=== PATIENT | female | born 1950 | race Caucasian/White ===

== ENCOUNTER 2017-07-15 17:31 | Observation (INO) | payer BC ==
[2017-07-15] MEDS ORDERED: Sodium Chloride 0.9% 2.5 ML Syringe FLUSH PRN (17:59)
[2017-07-15] MEDS ORDERED: Ketorolac 30 MG/ML SDV IVPUSH ONE (17:59)
[2017-07-15] MEDS ORDERED: Sodium Chloride 0.9% 10 ML Syringe FLUSH PRN (17:59)
--- NOTE | 2017-07-15 18:10 | EDM.PDOC ---
ED HPI GENERAL MEDICAL PROBLEM - General Chief Complaint: Gastrointestinal Problem Stated Complaint: STOMACH/BACK PAIN Time Seen by Provider: 07/15/17 17:55 Source of Information: Reports: Patient History Limitations: Reports: No Limitations - History of Present Illness INITIAL COMMENTS - FREE TEXT/NARRATIVE: HISTORY AND PHYSICAL: History of present illness: [Patient comes to the emergency room complaining of abdominal pain that radiates around to her mid back. Pain started at 2:30 this afternoon and has continued. She describes the pain as an aching that starts in the middle of her abdomen and moves to the back. She's never had pain like this before. Rates it as 5 out of 10. States that she was feeling well earlier today and has not been sick recently. No fever or chills. No earache, sore throat, or runny nose. No neck pain headaches dizziness or lightheadedness. She's had no pain in her chest , shortness of breath or difficulty breathing. She feels nauseated with her pain and feels that she could vomit at any time, which resolved about one hour ago. Stools have been normal. She usually has one bowel movement daily but today she's had 3. She denies any of them being loose or watery. No blood in her stools. Denies burning with urination and urinary frequency. No blood in her urine. No low back pain, muscle aches or joint pain. She's not had anything to eat or drink since the pain began. She ate normal foods today, including fried eggs and ham for lunch. States that she is healthy and follows regularly with Dr. Brewer. Surgical history includes 2 sinus surgeries and a R knee repair.] Review of systems: As per history of present illness and below otherwise all systems reviewed and negative. Past medical history: As per history of present illness and as reviewed below otherwise noncontributory. Surgical history: As per history of present illness and as reviewed below otherwise noncontributory. Social history: No reported history of drug or alcohol abuse. Family history: As per history of present illness and as reviewed below otherwise noncontributory. Physical exam: HEENT: Atraumatic, normocephalic. Oral mucous membranes are pink and moist no tonsillar swelling erythema or exudate. Neck is supple, no lymphadenopathy. Lungs: Clear to auscultation, breath sounds equal bilaterally, chest nontender. Heart: S1S2, regular rate and rhythm. No murmur gallop click or rub. Abdomen: Bowel sounds are normoactive throughout. Abdomen is soft and nondistended. She is tender with palpation over her epigastrium and right upper quadrant. No masses guarding or rebound. No CVA tenderness. Pelvis: Stable nontender. Genitourinary: Deferred. Rectal: Deferred. Extremities: Atraumatic, negative for cords or calf pain. No cyanosis or edema to feet or lower legs. Neurovascular unremarkable. Neuro: Awake, alert, oriented. Motor and sensory unremarkable throughout. Exam nonfocal. Diagnostics: [CBC, CMP, UA, amylase, lipase] Therapeutics: [Toradol 30 mg IV] Impression: [abdominal pain cholelithiasis] Plan: [CT shows cholelithiasis, is otherwise unremarkable. AST 95 bilirubin 0.7. Lipase 516, amylase 82, urinalysis is unremarkable. CBC is also unremarkable. Case is discussed with Dr. Susy Polo who recommends inpatient for medical management with IV hydration, nothing by mouth, repeat labs and ultrasound in the morning and consult in a.m. Dr. Fernando Alan agrees to accept patient in observation. This is discussed with the patient and her who are in agreement with today's plan.] Definitive disposition and diagnosis as appropriate pending reevaluation and review of above. Abdomen Pain Score (Numeric/FACES): 5 - Related Data Allergies Allergy/AdvReac Type Severity Reaction Status Date / Time No Known Allergies Allergy Verified 07/15/17 17:43 Home Meds: Home Meds Loratadine 1 tab PO DAILY 08/28/14 [History] Past Medical History HEENT History: Reports: Sinusitis - Infectious Disease History Infectious Disease History: Reports: Chicken Pox - Past Surgical History HEENT Surgical History: Reports: Other (See Below) Other HEENT Surgeries/Procedures: sinus surgery Musculoskeletal Surgical History: Reports: Other (See Below) Other Musculoskeletal Surgeries/Procedures:: pt states she had surgery on her right knee for torn cartilage Social & Family History - Family History Family Medical History: Noncontributory - Tobacco Use Smoking Status *Q: Never Smoker - Caffeine Use Caffeine Use: Reports: Coffee - Alcohol Use Days Per Week of Alcohol Use: 0 Number of Drinks Per Day: 0 Total Drinks Per Week: 0 - Recreational Drug Use Recreational Drug Use: No Drug Use in Last 12 Months: No ED ROS GENERAL - Review of Systems Review Of Systems: ROS reveals no pertinent complaints other than HPI. ED EXAM, GI/ABD - Physical Exam Exam: See Below Course - Vital Signs Last Recorded V/S: Last Vital Signs Temp 98 F 07/15/17 20:44 Pulse 80 07/15/17 20:44 Resp 18 07/15/17 20:44 BP 156/80 H 07/15/17 20:44 Pulse Ox 98 07/15/17 20:44 - Orders/Labs/Meds Orders: Active Orders 24 hr Category Date Time Status Notify Provider Consults [RC] ASDIRECTED Care 07/15/17 20:22 Active Consult to Physician [CONS] Stat Cons 07/15/17 20:21 Active Abdomen Pelvis w Cont [CT] Stat Exams 07/15/17 19:11 Taken Sodium Chloride 0.9% [Saline Flush] Med 07/15/17 17:59 Active 10 ml FLUSH ASDIRECTED PRN Sodium Chloride 0.9% [Saline Flush] Med 07/15/17 17:59 Active 2.5 ml FLUSH ASDIRECTED PRN Saline Lock Insert [OM.PC] Stat Oth 07/15/17 17:59 Ordered Medication Orders Sodium Chloride (Saline Flush) 10 ml FLUSH ASDIRECTED PRN PRN Reason: Keep Vein Open Sodium Chloride (Saline Flush) 2.5 ml FLUSH ASDIRECTED PRN PRN Reason: Keep Vein Open Labs: Laboratory Tests 07/15/17 07/15/17 07/15/17 Range/Units 18:12 18:12 18:14 WBC 7.57 (4.0-11.0) K/uL RBC 5.08 (4.30-5.90) M/uL Hgb 16.6 H (12.0-16.0) g/dL Hct 46.5 H (36.0-46.0) % MCV 91.5 (80.0-98.0) fL MCH 32.7 H (27.0-32.0) pg MCHC 35.7 (31.0-37.0) g/dL RDW Std Deviation 45.3 (28.0-62.0) fl RDW Coeff of [place] 13 (11.0-15.0) % Plt Count 170 (150-400) K/uL MPV 9.30 (7.40-12.00) fL Neut % (Auto) 80.7 H (48.0-80.0) % Lymph % (Auto) 12.5 L (16.0-40.0) % [place] % (Auto) 5.4 (0.0-15.0) % Eos % (Auto) 1.1 (0.0-7.0) % Baso % (Auto) 0.3 (0.0-1.5) % Neut # (Auto) 6.1 H (1.4-5.7) K/uL Lymph # (Auto) 1.0 (0.6-2.4) K/uL [place] # (Auto) 0.4 (0.0-0.8) K/uL Eos # (Auto) 0.1 (0.0-0.7) K/uL Baso # (Auto) 0.0 (0.0-0.1) K/uL Nucleated RBC % 0.0 /100WBC Nucleated RBCs # 0 K/uL Sodium 144 (136-145) mmol/L Potassium 3.7 (3.5-5.1) mmol/L Chloride 107 (98-107) mmol/L Carbon Dioxide 26.0 (21.0-32.0) mmol/L BUN 19 H (7.0-18.0) mg/dL Creatinine 1.1 H (0.6-1.0) mg/dL Est Cr Clr Drug Dosing 44.62 mL/min Estimated GFR (MDRD) 50.0 ml/min Glucose 121 H (74-106) mg/dL Calcium 9.6 (8.5-10.1) mg/dL Total Bilirubin 0.7 (0.2-1.0) mg/dL AST 95 H (15-37) IU/L ALT 63 (14-63) IU/L Alkaline Phosphatase 88 (46-116) U/L Total Protein 7.8 (6.4-8.2) g/dL Albumin 4.2 (3.4-5.0) g/dL Globulin 3.6 H (2.0-3.5) g/dL Albumin/Globulin Ratio 1.2 L (1.3-2.8) Amylase 82 (25-115) U/L Lipase 516 H (73-393) U/L Urine Color YELLOW Urine Appearance CLEAR Urine pH 5.5 (5.0-8.0) Ur Specific [place] 1.025 (1.001-1.035) Urine Protein NEGATIVE (NEGATIVE) mg/dL Urine Glucose (UA) NEGATIVE (NEGATIVE) mg/dL Urine Ketones NEGATIVE (NEGATIVE) mg/dL Urine Occult Blood TRACE-INTACT (NEGATIVE) Urine Nitrite NEGATIVE (NEGATIVE) Urine Bilirubin NEGATIVE (NEGATIVE) Urine Urobilinogen 0.2 (<2.0) EU/dL Ur Leukocyte Esterase NEGATIVE (NEGATIVE) Urine RBC NONE SEEN (0-2/HPF) Urine WBC 0-1 (0-5/HPF) Ur Epithelial Cells OCCASIONAL (NONE-FEW) Urine Bacteria RARE (NEGATIVE) Urine Mucus LIGHT (NONE-MOD) Meds: Medications Generic Name Dose Route Start Last Admin Trade Name Asaf PRN Reason Stop Dose Admin Sodium Chloride 10 ml 07/15/17 17:59 Saline Flush FLUSH ASDIRECTED PRN Keep Vein Open Sodium Chloride 2.5 ml 07/15/17 17:59 Saline Flush FLUSH ASDIRECTED PRN Keep Vein Open Discontinued Medications Generic Name Dose Route Start Last Admin Trade Name Asaf PRN Reason Stop Dose Admin Iopamidol 200 ml 07/15/17 19:33 07/15/17 19:34 Isovue Multipack-370 (76%) IVPUSH 07/15/17 19:34 80 ml ONETIME STA Administration Ketorolac Tromethamine 30 mg 07/15/17 17:59 07/15/17 18:12 Toradol IVPUSH 07/15/17 18:00 30 mg ONETIME ONE Administration Departure - Departure Time of Disposition: 20:22 Disposition: Refer to Observation Condition: Good Clinical Impression: Abdominal pain - Discharge Information - My Orders Last 24 Hours: My Active Orders 07/15/17 17:59 Sodium Chloride 0.9% [Saline Flush] 10 ml FLUSH ASDIRECTED PRN Sodium Chloride 0.9% [Saline Flush] 2.5 ml FLUSH ASDIRECTED PRN Saline Lock Insert [OM.PC] Stat 07/15/17 19:11 Abdomen Pelvis w Cont [CT] Stat 07/15/17 20:21 Consult to Physician [CONS] Stat 07/15/17 20:22 Notify Provider Consults [RC] ASDIRECTED - Assessment/Plan Last 24 Hours: My Active Orders 07/15/17 17:59 Sodium Chloride 0.9% [Saline Flush] 10 ml FLUSH ASDIRECTED PRN Sodium Chloride 0.9% [Saline Flush] 2.5 ml FLUSH ASDIRECTED PRN Saline Lock Insert [OM.PC] Stat 07/15/17 19:11 Abdomen Pelvis w Cont [CT] Stat 07/15/17 20:21 Consult to Physician [CONS] Stat 07/15/17 20:22 Notify Provider Consults [RC] ASDIRECTED
[2017-07-15] MEDS ORDERED: Iopamidol 755 MG/ML 200 ML Multipack Bottle IVPUSH STA (19:33)
[2017-07-15] MEDS ORDERED: Sodium Chloride 0.9% 1,000 ML IV ONE (22:29)
--- NOTE | 2017-07-15 23:55 | PCM.HP ---
H&P History of Present Illness - General Admit Problem/Dx: Admission Diagnosis/Problem Admission Diagnosis/Problem Abdominal pain - History of Present Illness Initial Comments - Free Text/Narative: 66 yo female who presents with one day history of abdominal pain. Pain started after eating today. She reported pain in the center of her abdomen that radiated to the back. She denies any fevers, diarrhea, nausea or vomiting. She received toradol in the ED and it resolved her abdominal pain. CT scan reported hepatic steatosis and cholelithiasis. Her labs showed a lipase of 516. Dr. Polo was consulted by ED provider who recommended admission to medical service. Abdomen Pain Score (Numeric/FACES): 5 - Related Data Allergies/Adverse Reactions: Allergies Allergy/AdvReac Type Severity Reaction Status Date / Time No Known Allergies Allergy Verified 07/15/17 17:43 Home Medications: Home Meds Loratadine 1 tab PO DAILY 08/28/14 [History] Past Medical History HEENT History: Reports: Sinusitis - Infectious Disease History Infectious Disease History: Reports: Chicken Pox - Past Surgical History HEENT Surgical History: Reports: Other (See Below) Other HEENT Surgeries/Procedures: sinus surgery Musculoskeletal Surgical History: Reports: Other (See Below) Other Musculoskeletal Surgeries/Procedures:: pt states she had surgery on her right knee for torn cartilage Social & Family History - Family History Family Medical History: Noncontributory - Tobacco Use Smoking Status *Q: Never Smoker - Caffeine Use Caffeine Use: Reports: Coffee - Alcohol Use Days Per Week of Alcohol Use: 0 Number of Drinks Per Day: 0 Total Drinks Per Week: 0 - Recreational Drug Use Recreational Drug Use: No Drug Use in Last 12 Months: No H&P Review of Systems - Review of Systems: Review Of Systems: ROS reveals no pertinent complaints other than HPI. Exam - Exam Exam: See Below - Vital Signs Vital Signs: Last Vital Signs Temp 36.6 C 07/15/17 21:20 Pulse 69 07/15/17 21:20 Resp 20 07/15/17 21:20 BP 151/73 H 07/15/17 21:20 Pulse Ox 95 07/15/17 21:20 Weight: 80.4 kg - Exam General: Alert, Oriented HEENT: Mucosa Moist & [place] Lungs: Clear to Auscultation, Normal Respiratory Effort Cardiovascular: Regular Rate, Regular Rhythm GI/Abdominal Exam: Normal Bowel Sounds, Soft, Non-Tender, No Distention Extremities: Non-Tender, No Pedal Edema Skin: Warm, Dry, Intact - Patient Data Result Diagrams: 07/16/17 04:50 07/16/17 16:22 *Q Meaningful Use (ADM) - VTE *Q VTE Criteria *Q: - Stroke *Q Stroke Criteria *Q: - AMI *Q AMI Criteria *Q: Problem List Initiated/Reviewed/Updated: Yes Orders Last 24hrs: Active Orders 24 hr Category Date Time Status NPO [Nothing Per Oral Diet] [DIET] Diet 07/16/17 Breakfast Active AMYLASE [CHEM] Routine Lab 07/16/17 05:00 Ordered CBC WITH AUTO DIFF [HEME] Routine Lab 07/16/17 05:00 Ordered COMPREHENSIVE METABOLIC PN,CMP [CHEM] Routine Lab 07/16/17 05:00 Ordered LIPASE [CHEM] Routine Lab 07/16/17 05:00 Ordered Sodium Chloride 0.9% [Normal Saline] 1,000 ml Med 07/15/17 23:45 Ordered IV ASDIRECTED Medication Orders Sodium Chloride (Normal Saline) 1,000 mls @ 200 mls/hr IV ASDIRECTED SUMIT Sodium Chloride (Saline Flush) 10 ml FLUSH ASDIRECTED PRN PRN Reason: Keep Vein Open Sodium Chloride (Saline Flush) 2.5 ml FLUSH ASDIRECTED PRN PRN Reason: Keep Vein Open Assessment/Plan Comment:: 66 yo female admitted with gallstone pancreatitis. We will treat with IV fluids and bowel rest.
[2017-07-16] MEDS: Sodium Chloride 0.9% 1,000 ML IV SCH ×3 (00:01→10:24)
[2017-07-16 05:47] LABS: CHLORIDE,CL 113 mmol/L (98-107); SODIUM,NA 146 mmol/L (136-145)
--- NOTE | 2017-07-16 09:58 | CT ---
EXAM DATE: 07/15/17 PATIENT'S AGE: 66 Patient: SHRUTHI DANIEL Facility: [place], [place] Site . Site : 1950 Study: CT Abdomen/Pelvis WITH [id number]/7/2018 7:40:02 PM Ordering Physician: Doctor Kessler Final Report: INDICATION: Abdominal pain, elevated lipase TECHNIQUE: CT abdomen and pelvis acquired with 80 cc Isovue 370 IV contrast. COMPARISON: None FINDINGS: Lower chest: Unremarkable. Liver: Hepatic steatosis. Spleen: Unremarkable. Pancreas: Unremarkable. Gallbladder and bile ducts: Cholelithiasis. Adrenal glands: Unremarkable. Kidneys: Unremarkable. GI tract: Unremarkable. Vascular structures: Unremarkable. Lymph nodes: Unremarkable. Miscellaneous: Unremarkable. No free air or significant free fluid. Pelvic Organs: The uterus measures 8.4 x 8.7 x 6.2 cm and contains multiple calcifications. Bones: Unremarkable for age. IMPRESSION: 1. No acute intra-abdominal process identified. 2. Enlarged uterus with multiple calcified fibroids. 3. Hepatic steatosis. 4. Cholelithiasis. Please note that all CT scans at this facility use dose modulation, iterative reconstruction, and/or weight-based dosing when appropriate to reduce radiation dose to as low as reasonably achievable. Dictated by Johanne Laboy MD @ Jul 15 2017 7:56PM (Electronic Signature) Report Signed by Proxy. [facility] MEDICAL CENTERAretha
--- NOTE | 2017-07-16 11:53 | PCM.DCSUM1 ---
<Ivan Messina Z - Last Filed: 07/16/17 18:13> Discharge Summary - Hospital Course HPI Initial Comments: Discharge Summary Date of admission: 07/15/2017 Date of discharge: 07/16/2017 Admitting diagnosis: #1. Elevated lipase #2. Elevated LFTs #3. Abdominal pain #4. #5. Discharge diagnoses: #1. Elevated LFTs that are downward trending secondary to a past gallstone in the hepatic duct #2. Cholelithiasis #3. Abdominal pain #4. #5. Consultations: Surgery Procedures: MRCP Hospitalization course: Patient was admitted secondary to acute abdominal pain severe in nature of the right upper quadrant, patient was made nothing by mouth as initially her lipase levels were significantly elevated with the fear that she may have a stone in the common bile duct, upon repeat labs the lipase level had come down however the LFTs it started to rise and the thought process was that the patient had likely passed the stone that was in the common bile duct however there may be a stone in or around the hepatic duct. Patient status was consult by Dr. Tejada in general surgery home past for the patient to get an MRCP. The MRCP did not show any blockage or stone within the ductal system. As a result Dr. Tejada recommended that the patient provided of the LFTs trend downwards and is able to tolerate her diet can be discharged home safely and to follow-up with her in 1 week's time in which she will get a outpatient evaluation and elective laparoscopic cholecystectomy. Patient was told to avoid heavy fatty meals that trigger increased production of bile. Disposition on discharge: Home Condition on discharge: Stable Discharge medications: Home medication Follow-up instructions: Dr. Tejada, Dr. Brewer - Discharge Data Discharge Date: 07/16/17 Discharge Disposition: Home, Self-Care 01 Condition: Fair - Patient Instructions Diet: Heart Healthy Diet Activity: As Tolerated Driving: Do Not Drive Notify Provider of: Fever, Increased Pain, Swelling and Redness - Discharge Plan Home Medications: Home Meds Loratadine 1 tab PO DAILY 08/28/14 [History] Patient Handouts: Cholelithiasis, [id number], Abdominal Pain, Adult, Easy-to- Read, Cholecystitis, [id number] Referrals: Susy Polo MD [Physician] - 07/31/17 11:45 am Italo Brewer MD [Primary Care Provider] - 07/27/17 3:15 pm - Discharge Summary/Plan Comment DC Time >30 min.: No - Patient Data Vitals - Most Recent: Last Vital Signs Temp 36.4 C 07/16/17 07:19 Pulse 69 07/16/17 07:19 Resp 16 07/16/17 07:19 BP 149/64 H 07/16/17 07:19 Pulse Ox 96 07/16/17 07:19 Weight - Most Recent: 80.4 kg I&O - Last 24 hours: Intake & Output 07/15/17 07/16/17 07/16/17 22:59 06:59 14:59 Intake Total 1000 Output Total 450 Balance 550 Lab Results - Last 24 hrs: Laboratory Results - last 24 hr 07/16/17 07/16/17 Range/Units 04:50 04:50 WBC 4.51 (4.0-11.0) K/uL RBC 4.48 (4.30-5.90) M/uL Hgb 14.2 (12.0-16.0) g/dL Hct 41.0 (36.0-46.0) % MCV 91.5 (80.0-98.0) fL MCH 31.7 (27.0-32.0) pg MCHC 34.6 (31.0-37.0) g/dL RDW Std Deviation 44.5 (28.0-62.0) fl RDW Coeff of [place] 13 (11.0-15.0) % Plt Count 137 L (150-400) K/uL MPV 9.60 (7.40-12.00) fL Neut % (Auto) 68.7 (48.0-80.0) % Lymph % (Auto) 21.3 (16.0-40.0) % [place] % (Auto) 8.2 (0.0-15.0) % Eos % (Auto) 1.6 (0.0-7.0) % Baso % (Auto) 0.2 (0.0-1.5) % Neut # (Auto) 3.1 (1.4-5.7) K/uL Lymph # (Auto) 1.0 (0.6-2.4) K/uL [place] # (Auto) 0.4 (0.0-0.8) K/uL Eos # (Auto) 0.1 (0.0-0.7) K/uL Baso # (Auto) 0.0 (0.0-0.1) K/uL Nucleated RBC % 0.0 /100WBC Nucleated RBCs # 0 K/uL Sodium 146 H (136-145) mmol/L Potassium 3.8 (3.5-5.1) mmol/L Chloride 113 H (98-107) mmol/L Carbon Dioxide 24.3 (21.0-32.0) mmol/L BUN 14 (7.0-18.0) mg/dL Creatinine 0.9 (0.6-1.0) mg/dL Est Cr Clr Drug Dosing 54.93 mL/min Estimated GFR (MDRD) > 60.0 ml/min Glucose 88 (74-106) mg/dL Calcium 8.1 L (8.5-10.1) mg/dL Total Bilirubin 0.6 (0.2-1.0) mg/dL AST 345 H (15-37) IU/L ALT 293 H (14-63) IU/L Alkaline Phosphatase 84 (46-116) U/L Total Protein 5.8 L (6.4-8.2) g/dL Albumin 3.0 L (3.4-5.0) g/dL Globulin 2.8 (2.0-3.5) g/dL Albumin/Globulin Ratio 1.1 L (1.3-2.8) Amylase 31 (25-115) U/L Lipase 91 (73-393) U/L Med Orders - Current: Current Medications Sodium Chloride (Normal Saline) 1,000 mls @ 200 mls/hr IV ASDIRECTED [facility] Last Admin: 07/16/17 10:24 Dose: 200 mls/hr Sodium Chloride (Saline Flush) 10 ml FLUSH ASDIRECTED PRN PRN Reason: Keep Vein Open Sodium Chloride (Saline Flush) 2.5 ml FLUSH ASDIRECTED PRN PRN Reason: Keep Vein Open Discontinued Medications Sodium Chloride (Normal Saline) 1,000 mls @ 999 mls/hr IV .BOLUS ONE Stop: 07/15/17 23:29 Last Admin: 07/15/17 22:42 Dose: 999 mls/hr Iopamidol (Isovue Multipack-370 (76%)) 200 ml IVPUSH ONETIME STA Stop: 07/15/17 19:34 Last Admin: 07/15/17 19:34 Dose: 80 ml Ketorolac Tromethamine (Toradol) 30 mg IVPUSH ONETIME ONE Stop: 07/15/17 18:00 Last Admin: 07/15/17 18:12 Dose: 30 mg *Q Meaningful Use (DIS) - VTE *Q VTE Criteria *Q: - Stroke *Q Stroke Criteria *Q: - AMI *Q AMI Criteria *Q: <Fernando Alan - Last Filed: 07/16/17 20:37> - Patient Data Vitals - Most Recent: Last Vital Signs Temp 36.4 C 07/16/17 17:00 Pulse 64 07/16/17 17:00 Resp 16 07/16/17 17:00 BP 148/77 H 07/16/17 17:00 Pulse Ox 96 07/16/17 17:00 I&O - Last 24 hours: Intake & Output 07/16/17 07/16/17 07/16/17 06:59 14:59 22:59 Intake Total 1000 1728 Output Total 450 800 Balance 550 928 Lab Results - Last 24 hrs: Laboratory Results - last 24 hr 07/16/17 07/16/17 07/16/17 Range/Units 04:50 04:50 16:22 WBC 4.51 (4.0-11.0) K/uL RBC 4.48 (4.30-5.90) M/uL Hgb 14.2 (12.0-16.0) g/dL Hct 41.0 (36.0-46.0) % MCV 91.5 (80.0-98.0) fL MCH 31.7 (27.0-32.0) pg MCHC 34.6 (31.0-37.0) g/dL RDW Std Deviation 44.5 (28.0-62.0) fl RDW Coeff of [place] 13 (11.0-15.0) % Plt Count 137 L (150-400) K/uL MPV 9.60 (7.40-12.00) fL Neut % (Auto) 68.7 (48.0-80.0) % Lymph % (Auto) 21.3 (16.0-40.0) % [place] % (Auto) 8.2 (0.0-15.0) % Eos % (Auto) 1.6 (0.0-7.0) % Baso % (Auto) 0.2 (0.0-1.5) % Neut # (Auto) 3.1 (1.4-5.7) K/uL Lymph # (Auto) 1.0 (0.6-2.4) K/uL [place] # (Auto) 0.4 (0.0-0.8) K/uL Eos # (Auto) 0.1 (0.0-0.7) K/uL Baso # (Auto) 0.0 (0.0-0.1) K/uL Nucleated RBC % 0.0 /100WBC Nucleated RBCs # 0 K/uL Sodium 146 H 146 H (136-145) mmol/L Potassium 3.8 3.6 (3.5-5.1) mmol/L Chloride 113 H 113 H (98-107) mmol/L Carbon Dioxide 24.3 21.4 (21.0-32.0) mmol/L BUN 14 12 (7.0-18.0) mg/dL Creatinine 0.9 0.8 (0.6-1.0) mg/dL Est Cr Clr Drug Dosing 54.93 61.79 mL/min Estimated GFR (MDRD) > 60.0 > 60.0 ml/min Glucose 88 79 (74-106) mg/dL Calcium 8.1 L 8.4 L (8.5-10.1) mg/dL Total Bilirubin 0.6 0.7 (0.2-1.0) mg/dL AST 345 H 190 H (15-37) IU/L ALT 293 H 246 H (14-63) IU/L Alkaline Phosphatase 84 87 (46-116) U/L Total Protein 5.8 L 5.9 L (6.4-8.2) g/dL Albumin 3.0 L 3.1 L (3.4-5.0) g/dL Globulin 2.8 2.8 (2.0-3.5) g/dL Albumin/Globulin Ratio 1.1 L 1.1 L (1.3-2.8) Amylase 31 (25-115) U/L Lipase 91 (73-393) U/L Med Orders - Current: Current Medications Discontinued Medications Sodium Chloride (Normal Saline) 1,000 mls @ 999 mls/hr IV .BOLUS ONE Stop: 07/15/17 23:29 Last Admin: 07/15/17 22:42 Dose: 999 mls/hr Sodium Chloride (Normal Saline) 1,000 mls @ 200 mls/hr IV ASDIRECTED [facility] Last Admin: 07/16/17 10:24 Dose: 200 mls/hr Iopamidol (Isovue Multipack-370 (76%)) 200 ml IVPUSH ONETIME STA Stop: 07/15/17 19:34 Last Admin: 07/15/17 19:34 Dose: 80 ml Ketorolac Tromethamine (Toradol) 30 mg IVPUSH ONETIME ONE Stop: 07/15/17 18:00 Last Admin: 07/15/17 18:12 Dose: 30 mg Sodium Chloride (Saline Flush) 10 ml FLUSH ASDIRECTED PRN PRN Reason: Keep Vein Open Sodium Chloride (Saline Flush) 2.5 ml FLUSH ASDIRECTED PRN PRN Reason: Keep Vein Open *Q Meaningful Use (DIS) - VTE *Q VTE Criteria *Q: - Stroke *Q Stroke Criteria *Q: - AMI *Q AMI Criteria *Q: - Free Text/Narrative Note: I have examined the patient. I have discussed findings and treatment plan with the resident. I agree with the assessment and plan outlined in the following resident's note.
--- NOTE | 2017-07-16 15:09 | PCM.CONS ---
H&P History of Present Illness - General Date of Service: 07/16/17 Admit Problem/Dx: Admission Diagnosis/Problem Admission Diagnosis/Problem Abdominal pain Source of Information: Patient History Limitations: Reports: No Limitations - History of Present Illness Initial Comments - Free Text/Narative: Patient is a 66 year old female who experienced post-prandial upper abdominal and mid back pain yesterday after a meal. She had never had pain like that before. She did not feel nauseated. She denied fevers, chills, or change in her bowel habits. The mid back pain was severe and brought her into the ED. She was given pain medication and her symptoms resolved. A CT of the abdomen pelvis revealed choledocholithasis. Her lipase was mildly elevated. She was admitted to the medicine service. She was made NPO and given IVF. Today her AST and ALT were elevated, but her bilirubin and lipase were normal. She is pain free this morning. 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: - Infectious Disease History Infectious Disease History: Reports: Chicken Pox - Past Surgical History HEENT Surgical History: Reports: Other (See Below) Other HEENT Surgeries/Procedures: sinus surgery Musculoskeletal Surgical History: Reports: Other (See Below) Other Musculoskeletal Surgeries/Procedures:: pt states she had surgery on her right knee for torn cartilage Social & Family History - Family History Family Medical History: Noncontributory OBGYN: Reports: Neurological: Reports: CVA Other Neurological Family History: Sister Psychiatric: Reports: Other (See Below) Other Psychiatric Family History: Alcohol abuse-parents Endocrine/Metabolic: Reports: Diabetes, Type I Other Endocrine/Metabolic Family History: Sister Oncologic: Reports: Colon, Prostate Other Oncologic Family History: Ca colon-maternal grandmother, Father-Prostate CA - Tobacco Use Smoking Status *Q: Never Smoker - Caffeine Use Caffeine Use: Reports: Coffee Caffeine Use Comment: 3-4 cups/day - Alcohol Use Days Per Week of Alcohol Use: 0 Number of Drinks Per Day: 0 Total Drinks Per Week: 0 - Recreational Drug Use Recreational Drug Use: No Drug Use in Last 12 Months: No H&P Review of Systems - Review of Systems: Review Of Systems: ROS reveals no pertinent complaints other than HPI. Exam - Exam Exam: See Below - Vital Signs Vital Signs: Last Vital Signs Temp 36.9 C 07/16/17 12:00 Pulse 70 07/16/17 12:00 Resp 18 07/16/17 12:00 BP 145/58 H 07/16/17 12:00 Pulse Ox 96 07/16/17 12:00 Weight: 80.4 kg - Exam General: Alert, Oriented HEENT: Conjunctiva Clear, EACs Clear, Mucosa Moist & Mehan, Posterior Pharynx Clear, Pupils Equal, Pupils Reactive Neck: Supple, Trachea Midline Lungs: Clear to Auscultation, Normal Respiratory Effort Cardiovascular: Regular Rate, Regular Rhythm GI/Abdominal Exam: Soft, Non-Tender, No Distention, No Mass. No: Guarding, Rigid, Rebound Back Exam: Normal Inspection Extremities: Normal Inspection - Patient Data Lab Results Last 24 hrs: Laboratory Results - last 24 hr 07/16/17 07/16/17 Range/Units 04:50 04:50 WBC 4.51 (4.0-11.0) K/uL RBC 4.48 (4.30-5.90) M/uL Hgb 14.2 (12.0-16.0) g/dL Hct 41.0 (36.0-46.0) % MCV 91.5 (80.0-98.0) fL MCH 31.7 (27.0-32.0) pg MCHC 34.6 (31.0-37.0) g/dL RDW Std Deviation 44.5 (28.0-62.0) fl RDW Coeff of [place] 13 (11.0-15.0) % Plt Count 137 L (150-400) K/uL MPV 9.60 (7.40-12.00) fL Neut % (Auto) 68.7 (48.0-80.0) % Lymph % (Auto) 21.3 (16.0-40.0) % [place] % (Auto) 8.2 (0.0-15.0) % Eos % (Auto) 1.6 (0.0-7.0) % Baso % (Auto) 0.2 (0.0-1.5) % Neut # (Auto) 3.1 (1.4-5.7) K/uL Lymph # (Auto) 1.0 (0.6-2.4) K/uL [place] # (Auto) 0.4 (0.0-0.8) K/uL Eos # (Auto) 0.1 (0.0-0.7) K/uL Baso # (Auto) 0.0 (0.0-0.1) K/uL Nucleated RBC % 0.0 /100WBC Nucleated RBCs # 0 K/uL Sodium 146 H (136-145) mmol/L Potassium 3.8 (3.5-5.1) mmol/L Chloride 113 H (98-107) mmol/L Carbon Dioxide 24.3 (21.0-32.0) mmol/L BUN 14 (7.0-18.0) mg/dL Creatinine 0.9 (0.6-1.0) mg/dL Est Cr Clr Drug Dosing 54.93 mL/min Estimated GFR (MDRD) > 60.0 ml/min Glucose 88 (74-106) mg/dL Calcium 8.1 L (8.5-10.1) mg/dL Total Bilirubin 0.6 (0.2-1.0) mg/dL AST 345 H (15-37) IU/L ALT 293 H (14-63) IU/L Alkaline Phosphatase 84 (46-116) U/L Total Protein 5.8 L (6.4-8.2) g/dL Albumin 3.0 L (3.4-5.0) g/dL Globulin 2.8 (2.0-3.5) g/dL Albumin/Globulin Ratio 1.1 L (1.3-2.8) Amylase 31 (25-115) U/L Lipase 91 (73-393) U/L Result Diagrams: 07/16/17 04:50 07/16/17 04:50 Consult PN Assessment/Plan Procedures: Procedures CULTURE AEROBIC IDENTIFY (03/06/14) DIAGNOSTIC COLONOSCOPY (08/30/14) HPV HIGH-RISK TYPES (03/09/15) MICROBE SUSCEPTIBLE LUIS (03/06/14) SMEAR WET [place] SALINE/INK (07/06/15) URINE BACTERIA CULTURE (03/06/14) URINE CULTURE/COLONY COUNT (05/25/17) (1) Symptomatic cholelithiasis SNOMED Code(s): 010599031 Code(s): K80.20 - CALCULUS OF GALLBLADDER W/O CHOLECYSTITIS W/O OBSTRUCTION Current Visit: Yes Problem List Initiated/Reviewed/Updated: Yes My Orders Last 24 Hours: My Active Orders 07/16/17 13:07 Abdomen wo Cont [MR] Stat Plan: An MRCP was ordered to rule out choledocholithiasis. I just visited with our radiologist. There is some trace fluid around the gallbladder as well as cholelithiasis but no evidence of choledocholithiasis. She most likely passed a stone into her CBD that has already passed. I would recommend advancing her diet and monitoring her symptoms. If she remains pain free and her LFTs come down she can discharge home. LFTs can be rechecked this evening or in the morning. She should follow up with me in 1 week for cholecystectomy. If her symptoms return after discharge she should return to the ED for re-evaluation. Please call with questions or concerns.
--- NOTE | 2017-07-16 15:14 | MR ---
EXAMINATION: MRI abdomen/MRCP HISTORY: Choledocholithiasis COMPARISON: CT dated 07/15/2017 TECHNIQUE: Multiplanar and multisequence imaging obtained of the abdomen without contrast. FINDINGS: There is moderate signal dropout within the liver on out of phase imaging. No focal hepatic mass identified. No intraductal biliary ductal dilatation. Cholelithiasis is noted with a trace vanessa cholecystic fluid. The common bile duct and common hepatic ducts are not dilated without a filling de fect. Pancreatic duct and pancreas appear normal in signal. The adrenal glands and spleen are normal. No bulky retroperitoneal lymphadenopathy. The kidneys appear normal. No abnormal bone marrow signal. IMPRESSION: 1. Moderate fatty infiltration of liver. 2. Cholelithiasis with a trace pericholecystic fluid. Correlate clinically for cholecystitis. 3. No choledocholithiasis identified.
[2017-07-16 17:07] VITALS: BP 148/77
[2017-07-16 17:26] LABS: CHLORIDE,CL 113 mmol/L (98-107); SODIUM,NA 146 mmol/L (136-145)
== END 2017-07-16 19:45 | disposition home or self-care (01) ==
LOC: MW.ED 17:31 → MW.MS 20:22
PROVIDERS: ADMIT Internal Medicine; ATTEND Internal Medicine
DX: K80.20 Calculus of gallbladder without cholecystitis without obstruction (principal); K21.9 Gastro-esophageal reflux disease without esophagitis; Z79.899 Other long term (current) drug therapy
CPT/HCPCS: 36415; 74177; 74181; 80053; 81001; 82150; 83690; 85025; 96361; 96374; 99285; G0378; J1885; J7040; Q9967; 99284

== ENCOUNTER 2017-08-11 06:26 | Day surgery (SDC) | payer BC ==
[~2017-08-11 06:26] MED LIST: Lactated Ringers 1,000 ML IV SCH; Sodium Chloride 0.9% 10 ML Syringe FLUSH PRN; Sodium Chloride 0.9% 2.5 ML Syringe FLUSH PRN; ceFAZolin 2 GM in Premix Bag 1 BAG IV ONE
[2017-08-11] MEDS ORDERED: Scopolamine 1.5 MG Transdermal Patch TRDERM PRN (06:58)
--- NOTE | 2017-08-11 07:00 | PCM.PREANE ---
Preanesthetic Assessment - Anesthesia/Transfusion/Family Hx Anesthesia History: Prior Anesthesia Without Reaction Other Type of Anesthesia Reaction Comment: Denies any known problem in past, no family hx: problems Family History of Anesthesia Reaction: No Transfusion History: No Prior Transfusion(s) Intubation History: Unknown - Review of Systems General: No Symptoms Pulmonary: No Symptoms Cardiovascular: No Symptoms Gastrointestinal: Abdominal Pain Neurological: No Symptoms Other: Reports: None - Physical Assessment Height: 1.6 m Weight: 78.471 kg ASA Class: 2 Mental Status: Alert & Oriented x3 Airway Class: Mallampati = 2 Dentition: Reports: Normal Dentition, [place](s) (multiple - all over) Thyro-Mental Finger Breadths: 3 Mouth Opening Finger Breadths: 2 ROM/Head Extension: Full Lungs: Clear to Auscultation, Normal Respiratory Effort Cardiovascular: Regular Rate, Regular Rhythm - Allergies Allergies/Adverse Reactions: Allergies Allergy/AdvReac Type Severity Reaction Status Date / Time No Known Allergies Allergy Verified 08/06/17 10:18 - Blood Blood Available: No - Anesthesia Plan Pre-Op Medication Ordered: None - Acknowledgements Anesthesia Type Planned: General Anesthesia Pt an Appropriate Candidate for the Planned Anesthesia: Yes Alternatives and Risks of Anesthesia Discussed w Pt/Guardian: Yes Pt/Guardian Understands and Agrees with Anesthesia Plan: Yes PreAnesthesia Questionnaire HEENT History: Reports: Allergic Rhinitis, Sinusitis Gastrointestinal History: Reports: Cholelithiasis 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: Endocrine/Metabolic History: Reports: Obesity/BMI 30+ - Infectious Disease History Infectious Disease History: Reports: Chicken Pox - Past Surgical History Head Surgeries/Procedures: Reports: None HEENT Surgical History: Reports: Other (See Below) Other HEENT Surgeries/Procedures: sinus surgery x2 GI Surgical History: Reports: Colonoscopy Musculoskeletal Surgical History: Reports: Arthroscopic Knee, Other (See Below) Other Musculoskeletal Surgeries/Procedures:: pt states she had surgery on her right knee for torn cartilage - SUBSTANCE USE Smoking Status *Q: Never Smoker Days Per Week of Alcohol Use: 0 Number of Drinks Per Day: 0 Total Drinks Per Week: 0 Recreational Drug Use History: No - HOME MEDS Home Medications: Home Meds Loratadine 1 tab PO DAILY 08/28/14 [History] - CURRENT (IN HOUSE) MEDS Current Meds: Current Medications Lactated Ringer's (Ringers, Lactated) 1,000 mls @ 125 mls/hr IV ASDIRECTED SUMIT Sodium Chloride (Saline Flush) 10 ml FLUSH ASDIRECTED PRN PRN Reason: Keep Vein Open Sodium Chloride (Saline Flush) 2.5 ml FLUSH ASDIRECTED PRN PRN Reason: Keep Vein Open Discontinued Medications Cefazolin Sodium/Dextrose 2 gm (/ Premix) 50 mls @ 100 mls/hr IV ONETIME ONE Stop: 08/07/17 14:19
[2017-08-11] MEDS ORDERED: Propofol 200 MG/20 ML SDV ONE (07:23)
[2017-08-11] MEDS ORDERED: fentaNYL 100 MCG/2 ML SDV ONE (07:23)
[2017-08-11] MEDS ORDERED: Midazolam 1 MG/ML 2 ML SDV ONE (07:24)
[2017-08-11] MEDS ORDERED: Bupivacaine 0.5% 30 ML SDV ONE (07:24)
[2017-08-11] MEDS ORDERED: Neostigmine Methylsulfate 1 MG/ML 5 ML Syringe ONE (07:26)
[2017-08-11] MEDS ORDERED: Ondansetron 4 MG/2 ML SDV ONE (07:26)
[2017-08-11] MEDS ORDERED: diphenhydrAMINE 50 MG/ML SDV ONE (07:26)
[2017-08-11] MEDS ORDERED: Glycopyrrolate 0.2 MG/ML SDV ONE ×3 (07:26→08:43)
[2017-08-11] MEDS ORDERED: Rocuronium 10 MG/ML 10 ML Syringe ONE (07:26)
[2017-08-11] MEDS ORDERED: ceFAZolin 1 GM Vial ONE (08:01)
[2017-08-11] MEDS ORDERED: HYDROmorphone 2 MG/ML SDV ONE (08:03)
[2017-08-11] MEDS ORDERED: Atropine 0.1 MG/ML 10 ML Syringe ONE (08:26)
[2017-08-11] MEDS ORDERED: fentaNYL 100 MCG/2 ML SDV IVPUSH PRN (08:39)
[2017-08-11] MEDS ORDERED: Flumazenil 0.1 MG/ML 5 ML MDV ONE (08:57)
[2017-08-11] MEDS ORDERED: Acetaminophen/oxyCODONE 325-5 MG Tab PO PRN (09:07)
--- NOTE | 2017-08-11 09:09 | PCM.OPNOTE ---
- General Post-Op/Procedure Note Date of Surgery/Procedure: 08/11/17 Operative Procedure(s): Laparoscopic cholecystectomy Findings: Normal appearing gallbladder Pre Op Diagnosis: Symptomatic cholelithiasis and pancreatitis Post-Op Diagnosis: same Anesthesia Technique: General ET Tube Primary Surgeon: Susy Polo Fluid Replacement, Intraop: 1,600 Output, Urine Amount: 150 EBL in mLs: 10 Condition: Good
--- NOTE | 2017-08-11 09:41 | PCM.POSTAN ---
POST ANESTHESIA ASSESSMENT - MENTAL STATUS Mental Status: Alert, Oriented - RESPIRATORY Respiratory Status: Respiratory Rate WNL, Airway Patent, O2 Saturation Stable - CARDIOVASCULAR CV Status: Pulse Rate WNL, Blood Pressure Stable - GASTROINTESTINAL GI Status: No Symptoms - PAIN Pain Score: 3 - POST OP HYDRATION Hydration Status: Adequate & Stable - OBSERVATIONS Free Text/Narrative:: no anesthesia problems
[2017-08-11] MEDS ORDERED: Ibuprofen 400 MG Tab PO ONE (11:03)
--- NOTE | 2017-08-11 12:10 | OR ---
SURGEON: DOMONIQUE SIDDIQI MD DATE OF PROCEDURE: 08/11/2017 PREOPERATIVE DIAGNOSIS: Symptomatic cholelithiasis. POSTOPERATIVE DIAGNOSIS: Symptomatic cholelithiasis. PROCEDURE PERFORMED: Laparoscopic cholecystectomy. ANESTHESIA: General endotracheal anesthesia. FLUIDS: 1600 mL of crystalloid. URINE OUTPUT: 150 mL. ESTIMATED BLOOD LOSS: 10 mL. FINDINGS: Normal-appearing gallbladder. COMPLICATIONS: None. INDICATIONS: The patient is a 66-year-old female who was admitted to the Medicine Service 3 weeks ago with an elevation in her liver enzymes and lipase. A right upper quadrant ultrasound showed evidence of cholelithiasis. An MRCP showed no evidence of choledocholithiasis. Her liver function tests and lipase returned to normal. The decision was made to proceed with a laparoscopic possible open cholecystectomy due to the fact that she most likely had transaminitis and mild pancreatitis from a common bile duct stone. We discussed the procedure and expected perioperative course. I explained the need for converting from laparoscopic to open should I be unable to perform it safely. We discussed the risks including bleeding, infection, or damage to surrounding structures. The patient verbalized understanding and wishes to proceed. PROCEDURE IN DETAIL: The patient was brought into the OR and placed on the OR table in supine position. A time-out was completed verifying the patient's name, age, date of , allergies, and procedure to be performed. General endotracheal anesthesia was induced. The left arm was tucked at the patient's side and the abdomen prepped and draped in usual standard fashion. A Dutton catheter was placed. The infraumbilical fold was anesthetized with 0.5% Marcaine plain. An 11 blade was used to make an incision along the infraumbilical fold. Cautery was used to dissect down to the level of the subcutaneous fat. The retractors were used to dissect down to the level of the fascia. The fascia was elevated with Ivette's and incised sharply. The posterior rectus sheath was grasped with hemostats and incised sharply. Entry into the abdomen was digitally palpated. A 12 mm Ann trocar was placed in the abdomen. The abdomen was insufflated and a 5 mm 30-degree scope was inserted. I inspected the area underneath my initial trocar incision and no damage to surrounding structures was noted. The patient was placed into reverse Trendelenburg position and airplaned slightly to the left. 5 mm trocars were placed under direct visualization in the following locations, one in the epigastric area, one in the right flank, and one 2 fingerbreadths below the right subcostal margin along the midclavicular line. The dome of the gallbladder was grasped via the right lateral flank port and elevated above the liver. This exposed the infundibulum. There were some small adhesions to the surrounding small bowel. These were taken down with a hook cautery. The infundibulum was grasped with an atraumatic grasper and retracted medial and laterally to allow our dissection of the cystic artery and duct. I dissected the cystic duct and artery free of the overlying tissue and I cleared off one-third of the proximal cystic plate. Once my critical view was achieved, I doubly clipped and ligated the cystic duct and artery. The remainder of the gallbladder was removed from the gallbladder fossa using electrocautery. A small rent was made in the wall of the gallbladder and some bile was spilled into the abdomen. No stones were spilled in the abdomen. Once the gallbladder was completely freed, I placed it in an EndoCatch bag and removed through the infraumbilical port site. The 12 mm Ann trocar was replaced in the abdomen and I inspected my operative site. I copiously irrigated the abdomen to allow for better visualization. Once the irrigant was running clear, I re-inspected my operative field. It appeared to be hemostatic with the clips in good position. The trocars were then removed under direct visualization. The abdomen was allowed to desufflate. The infraumbilical port site fascia was closed with interrupted 0 Vicryl sutures. The subcutaneous fat was closed with interrupted 3-0 Vicryl. The skin was closed with a running 4-0 Monocryl stitch. The 5 mm trocar sites were closed with interrupted 4-0 Monocryl sutures. Steri- Strips and sterile dressings were applied. The patient tolerated the procedure well and was taken to PACU in stable condition. DARRYL PEDERSON /[id number]
[2017-08-11 13:43] VITALS: BP 142/60
== END 2017-08-11 12:05 | disposition home or self-care (01) ==
LOC: MW.SDS 06:26
PROVIDERS: ATTEND Surgery
DX: K80.10 Calculus of gallbladder with chronic cholecystitis without obstruction (principal); Z79.899 Other long term (current) drug therapy
CPT/HCPCS: 47562; A9270; J0461; J0690; J1170; J1200; J2250; J2405; J3010; J7120; 00790; 88304; J2704

== ENCOUNTER 2018-05-25 09:54 | Day surgery (SDC) | payer MEDICARE, BC ==
[~2018-05-25 09:54] MED LIST changes: -ceFAZolin 2 GM in Premix Bag 1 BAG IV ONE
--- NOTE | 2018-05-25 11:05 | PCM.PREANE ---
Preanesthetic Assessment - Anesthesia/Transfusion/Family Hx Anesthesia History: Prior Anesthesia Without Reaction Other Type of Anesthesia Reaction Comment: Denies any known problem in past, no family hx: problems Family History of Anesthesia Reaction: No Transfusion History: No Prior Transfusion(s) Intubation History: Unknown - Review of Systems General: No Symptoms Pulmonary: No Symptoms Cardiovascular: No Symptoms Gastrointestinal: No Symptoms Neurological: No Symptoms Other: Reports: None - Physical Assessment NPO Status Date: 05/24/18 O2 Sat by Pulse Oximetry: 98 Respiratory Rate: 16 Vital Signs: Last Vital Signs Temp 36.6 C 05/25/18 10:29 Pulse 68 05/25/18 10:29 Resp 16 05/25/18 10:29 BP 118/63 05/25/18 10:29 Pulse Ox 98 05/25/18 10:29 Height: 1.6 m Weight: 77.111 kg ASA Class: 1 Mental Status: Alert & Oriented x3 Airway Class: Mallampati = 1 Dentition: Reports: Normal Dentition, [place](s) ROM/Head Extension: Full Lungs: Clear to Auscultation, Normal Respiratory Effort Cardiovascular: Regular Rate, Regular Rhythm - Allergies Allergies/Adverse Reactions: Allergies Allergy/AdvReac Type Severity Reaction Status Date / Time No Known Allergies Allergy Verified 05/20/18 09:24 - Blood Blood Available: No - Anesthesia Plan Pre-Op Medication Ordered: None - Acknowledgements Anesthesia Type Planned: MAC Pt an Appropriate Candidate for the Planned Anesthesia: Yes Alternatives and Risks of Anesthesia Discussed w Pt/Guardian: Yes Pt/Guardian Understands and Agrees with Anesthesia Plan: Yes Additional Comments: PMH:seasonal allergies PLAN: MAC/TIVA PreAnesthesia Questionnaire HEENT History: Reports: Allergic Rhinitis, Other (See Below) Other HEENT History: wears glasses Gastrointestinal History: Reports: Chronic Constipation 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: Musculoskeletal History: Reports: Osteoarthritis Endocrine/Metabolic History: Reports: Obesity/BMI 30+ - Infectious Disease History Infectious Disease History: Reports: Chicken Pox - Past Surgical History Head Surgeries/Procedures: Reports: None HEENT Surgical History: Reports: Naso-Sinus Surgery Other HEENT Surgeries/Procedures: sinus surgery GI Surgical History: Reports: Cholecystectomy, Colonoscopy Musculoskeletal Surgical History: Reports: Arthroscopic Knee - SUBSTANCE USE Smoking Status *Q: Never Smoker Recreational Drug Use History: No - HOME MEDS Home Medications: Home Meds Loratadine 1 tab PO DAILY 08/28/14 [History] - CURRENT (IN HOUSE) MEDS Current Meds: Current Medications Lactated Ringer's (Ringers, Lactated) 1,000 mls @ 125 mls/hr IV ASDIRECTED SUMIT Last Admin: 05/25/18 10:28 Dose: 125 mls/hr Sodium Chloride (Saline Flush) 10 ml FLUSH ASDIRECTED PRN PRN Reason: Keep Vein Open Sodium Chloride (Saline Flush) 2.5 ml FLUSH ASDIRECTED PRN PRN Reason: Keep Vein Open Sodium Chloride (Saline Flush) 10 ml FLUSH ASDIRECTED PRN PRN Reason: Keep Vein Open Sodium Chloride (Saline Flush) 2.5 ml FLUSH ASDIRECTED PRN PRN Reason: Keep Vein Open
[2018-05-25] MEDS ORDERED: Propofol 200 MG/20 ML SDV ONE ×2 (11:54→13:01)
[2018-05-25] MEDS ORDERED: fentaNYL 100 MCG/2 ML SDV ONE (13:05)
--- NOTE | 2018-05-25 13:27 | PCM.OPNOTE ---
- General Post-Op/Procedure Note Date of Surgery/Procedure: 05/25/18 Operative Procedure(s): Diagnostic colonoscopy Findings: Normal colon Pre Op Diagnosis: Change in bowel habits Post-Op Diagnosis: normal colonoscopy Anesthesia Technique: MAC Primary Surgeon: Susy Polo Condition: Good
--- NOTE | 2018-05-25 13:44 | PCM.POSTAN ---
POST ANESTHESIA ASSESSMENT - MENTAL STATUS Mental Status: Alert, Oriented - VITAL SIGNS Pulse Rate: 73 SaO2: 99 Resp Rate: 16 Blood Pressure: 114/64 - RESPIRATORY Respiratory Status: Respiratory Rate WNL, Airway Patent, O2 Saturation Stable - CARDIOVASCULAR CV Status: Pulse Rate WNL, Blood Pressure Stable - GASTROINTESTINAL GI Status: No Symptoms - PAIN Pain Score: 0 - POST OP HYDRATION Hydration Status: Adequate & Stable - OBSERVATIONS Free Text/Narrative:: awake and alert. Good post op phase I recovery from colonoscopy
--- NOTE | 2018-05-25 13:45 | PCM48HPAN ---
Post Anesthesia Note - EVALUATION WITHIN 48HRS OF ANESTHETIC Vital Signs in Normal Range: Yes Patient Participated in Evaluation: Yes Respiratory Function Stable: Yes Airway Patent: Yes Cardiovascular Function Stable: Yes Hydration Status Stable: Yes Pain Control Satisfactory: Yes Nausea and Vomiting Control Satisfactory: Yes Mental Status Recovered: Yes Pulse Rate: 73 Resp Rate: 16 Blood Pressure: 114/64
[2018-05-25 14:58] VITALS: BP 134/66
--- NOTE | 2018-05-26 01:35 | OR ---
SURGEON: DOMONIQUE SIDDIQI MD DATE OF PROCEDURE: 05/25/2018 PREOPERATIVE DIAGNOSIS: Change in bowel habits. POSTOPERATIVE DIAGNOSIS: Normal colonoscopy. PROCEDURE PERFORMED: Diagnostic colonoscopy. ANESTHESIA: MAC. INSTRUMENT USED: Olympus colonoscope. EXTENT OF EXAM: To the cecum. PREPARATION: Good. LIMITATIONS: None. INDICATION FOR EXAMINATION: The patient is a 67-year-old female who has had an acute change in her bowel habits. The decision was made to proceed with a diagnostic colonoscopy. I explained the procedure, expected perioperative course, and risks including bleeding, infection, or damage to surrounding structures including perforation. The patient verbalized understanding and wishes to proceed. PROCEDURE IN DETAIL: The patient was brought to the endoscopy suite and placed in the left lateral decubitus position. A time-out was completed verifying the patient's name, age, date of , allergies, and procedure to be performed. Monitored anesthesia care was induced and continuous oxygen was provided via nasal cannula throughout the procedure. After adequate sedation was achieved, a digital rectal exam was performed. This exam was within normal limits. A well-lubricated colonoscope was inserted in the rectum and advanced under direct visualization to the level of the cecum. The cecum was identified by both visual and anatomic landmarks. A photograph was taken of the cecal cap as well as with the scope retroflexed within the cecum. The scope was then fully withdrawn while examining the color, texture, anatomy, and integrity of the mucosa from the cecum to the anal canal. The findings were consistent with normal colonic mucosa. The scope was then brought into the rectum and retroflexed to allow visualization of the anal canal opening. This appeared normal and a photograph was taken. The scope was then straightened out and fully withdrawn. The cecum to anus time was 7 minutes. The patient tolerated the procedure well and was transferred to the PACU in stable condition. ENDOSCOPIC DIAGNOSIS: Normal colonoscopy. RECOMMENDATIONS: I discussed the patient's symptoms in the postoperative care area. The diarrhea that she had been previously having has subsided. If she would like, she can follow up with me in clinic at any time for any further discussion of diagnosis and treatment options. Otherwise, she can follow up in 10 years for repeat colonoscopy. DARRYL PEDERSON /[id number]
== END 2018-05-25 14:05 | disposition home or self-care (01) ==
LOC: MW.SDS 09:54
PROVIDERS: ATTEND Surgery
DX: R19.4 Change in bowel habit (principal); E66.9 Obesity, unspecified; M16.12 Unilateral primary osteoarthritis, left hip; M17.12 Unilateral primary osteoarthritis, left knee; Z79.899 Other long term (current) drug therapy
CPT/HCPCS: 45378; J2704; J3010; J7120